=== PATIENT | male | born 1960 | race Caucasian/White ===

== ENCOUNTER 2022-02-21 05:10 | Inpatient (IN) | payer BC ==
[~2022-02-21] VITALS: Ht 195.6 cm; Wt 120.1 kg
[2022-02-21] MEDS ORDERED: ELIQ5TAB PO (05:33)
[2022-02-21] MEDS ORDERED: DOFE500C PO (05:33)
[2022-02-21] MEDS ORDERED: METO200T28 PO (05:33)
[2022-02-21] MEDS ORDERED: ONDANSETRON 4MG 2ML VIAL IV ONE (06:30)
[2022-02-21] MEDS ORDERED: NS 1,000 ML IV ONE (06:30)
[2022-02-21] MEDS ORDERED: MORPHINE 4 MG/ML 1ML VIAL/SYRINGE IV ONE (06:30)
[2022-02-21 06:42] LABS: ALBUMIN 3.8 GM/DL (3.2-5.2); ALT/SGPT 47 U/L (12-78); BILIRUBIN,TOTAL 0.6 MG/DL (0.2-1.0); BLOOD UREA NITROGEN 20 MG/DL (7-18); CALCIUM LEVEL 9.8 MG/DL (8.8-10.2); CARBON DIOXIDE LEVEL 26 MEQ/L (21-32); CHLORIDE LEVEL 110 MEQ/L (98-107); CREATININE FOR GFR 1.06 MG/DL (0.70-1.30); GLOMERULAR FILTRATION RATE > 60.0 (>49); GLUCOSE, FASTING 117 MG/DL (70-100); LIPASE 79 U/L (73-393); MAGNESIUM LEVEL 2.2 MG/DL (1.8-2.4); POTASSIUM SERUM 4.1 MEQ/L (3.5-5.1); SODIUM LEVEL 143 MEQ/L (136-145); TOTAL PROTEIN 7.6 GM/DL (6.4-8.2)
[2022-02-21 06:44] LABS: CK-MB VALUE MASS 7.5 NG/ML (<3.6); MB/CK RELATIVE INDEX 2.81 (< OR =4)
[2022-02-21 06:48] LABS: BASO % 0.3 % (0.0-1.0); EOS # 0.2 10^3/uL (0.0-0.5); EOS % 1.6 % (0.0-3.0); HEMATOCRIT 44.9 % (42.0-52.0); HEMOGLOBIN 15.4 g/dl (13.5-17.5); LYMPH # 1.5 10^3/uL (1.5-5.0); LYMPH % 15.8 % (24.0-44.0); MEAN CORPUSCULAR HGB CONC 34.3 g/dl (32.0-36.5); MEAN CORPUSCULAR VOLUME 93.2 fl (80.0-96.0); MONO # 0.7 10^3/uL (0.0-0.8); MONO % 7.4 % (2.0-8.0); NEUTROPHILS # 6.9 10^3/uL (1.5-8.5); NEUTROPHILS % 74.6 % (36.0-66.0); PLATELET COUNT, AUTOMATED 245 10^3/uL (150-450); RED BLOOD COUNT 4.82 10^6/uL (4.30-6.10); WHITE BLOOD COUNT 9.3 10^3/uL (4.0-10.0)
[2022-02-21] MEDS ORDERED: ISOVUE-370 76% 100ML VIAL As Ordered ONE (07:13)
[2022-02-21 07:42] LABS: CK-MB VALUE MASS 6.7 NG/ML (<3.6); MB/CK RELATIVE INDEX 2.72 (< OR =4)
[2022-02-21] MEDS ORDERED: PIPERACILLIN/TAZOBACTAM SOD 3.375 GM in D5W MINI-BAG PLUS 50 ML IV ONE (08:20)
[2022-02-21] MEDS ORDERED: NS 1,000 ML IV SCH (08:20)
[2022-02-21] MEDS ORDERED: HYDROMORPHONE HCL 0.5 MG/ 0.5 ML SYRINGE (J1170 PER 1) IV ONE (08:25)
[2022-02-21] MEDS ORDERED: BUPIVACAINE HCL 0.5% 30ML VIAL As Ordered ONE (09:43)
[2022-02-21] MEDS ORDERED: BUPIVACAINE LIPOSOME/PF 1.3% 20ML VIAL (13.3MG/ML)(EXPAREL) As Ordered ONE (09:43)
[2022-02-21] MEDS ORDERED: ROCURONIUM BROMIDE 50 MG/5 ML VIAL As Ordered ONE ×2 (10:15→10:21)
[2022-02-21] MEDS ORDERED: ACETAMINOPHEN 1000MG 100ML IV BTL (OFIRMEV) (J0131 PER 10MG) As Ordered ONE (10:15)
[2022-02-21] MEDS ORDERED: MIDAZOLAM INJ 2MG/2ML VIAL (J2250 PER 1MG) As Ordered ONE (10:15)
[2022-02-21] MEDS ORDERED: LIDOCAINE 2% 100MG/5ML SDV (FOR ANES.) As Ordered ONE (10:15)
[2022-02-21] MEDS ORDERED: dexameTHASONE 4 MG/ML 1ML VIAL (J1100 PER 1MG) As Ordered ONE (10:15)
[2022-02-21] MEDS ORDERED: HYDROmorphone HCL 2MG/ML 1ML VIAL As Ordered ONE (10:15)
[2022-02-21] MEDS ORDERED: fentaNYL 100 MCG/2 ML INJECTION As Ordered ONE (10:15)
[2022-02-21] MEDS ORDERED: propofoL 200 MG/20 ML VIAL As Ordered ONE (10:15)
[2022-02-21] MEDS ORDERED: PHENYLephrine 500MCG 5ML (100MCG/ML) SYRINGE As Ordered ONE (10:15)
[2022-02-21] MEDS ORDERED: ONDANSETRON 4MG 2ML VIAL As Ordered ONE (10:15)
[2022-02-21] MEDS ORDERED: SUCCINYLCHOLINE 100 MG/5 ML SYRINGE (J0330) As Ordered ONE (10:15)
[2022-02-21] MEDS ORDERED: SUGAMMADEX SODIUM 500 MG/5 ML VIAL (BRIDION) As Ordered ONE (10:21)
[2022-02-21] MEDS ORDERED: oxyCODONE 5MG TAB PO PRN (11:50)
[2022-02-21] MEDS ORDERED: LR 1,000 ML IV SCH (11:50)
[2022-02-21] MEDS ORDERED: fentaNYL 100 MCG/2 ML INJECTION IV PRN (11:50)
[2022-02-21] MEDS ORDERED: MORPHINE 2 MG/ML 1ML VIAL IV PRN (11:50)
[2022-02-21] MEDS ORDERED: ONDANSETRON 4MG 2ML VIAL IV PRN ×2 (11:50→12:20)
[2022-02-21] MEDS ORDERED: PERCOCET 5MG/325MG TAB PO PRN ×2 (12:20)
[2022-02-21] MEDS ORDERED: MORPHINE 4 MG/ML 1ML VIAL/SYRINGE IV PRN (12:20)
[2022-02-21 13:16] VITALS: BP 124/77
[2022-02-21] MEDS ORDERED: TOPR25TA PO (14:09)
[2022-02-21] MEDS ORDERED: HOME MED LIST COMPLETE! XX SCH (14:10)
[2022-02-21] MEDS: KETOROLAC 30 MG/ML 1ML VIAL IV SCH ×2 (14:45→20:47)
[2022-02-21] MEDS: SENOKOT S TAB PO SCH ×2 (14:45→20:47)
[2022-02-21] MEDS: PIPERACILLIN/TAZOBACTAM SOD 3.375 GM in D5W MINI-BAG PLUS 50 ML IV SCH ×2 (14:46→20:47)
[2022-02-21] MEDS: KCL 20MEQ IN D5/0.45NS 1000ML 1,000 ML IV SCH (14:47)
[2022-02-21] MEDS: PANTOPRAZOLE 40MG VIAL IV SCH (14:49)
[2022-02-21 16:09] VITALS: BP 119/73
[2022-02-21 20:00] VITALS: BP 104/62
[2022-02-22] VITALS: BP 116/67
[2022-02-22] MEDS: KCL 20MEQ IN D5/0.45NS 1000ML 1,000 ML IV SCH ×4 (01:11→20:31)
[2022-02-22] MEDS: KETOROLAC 30 MG/ML 1ML VIAL IV SCH ×4 (01:12→18:00)
[2022-02-22 04:00] VITALS: BP 108/70
[2022-02-22] MEDS: PIPERACILLIN/TAZOBACTAM SOD 3.375 GM in D5W MINI-BAG PLUS 50 ML IV SCH ×4 (04:39→20:32)
[2022-02-22 05:56] LABS: BASO % 0.3 % (0.0-1.0); EOS # 0.1 10^3/uL (0.0-0.5); EOS % 0.7 % (0.0-3.0); HEMATOCRIT 39.2 % (42.0-52.0); LYMPH # 0.9 10^3/uL (1.5-5.0); LYMPH % 12.8 % (24.0-44.0); MEAN CORPUSCULAR HEMOGLOBIN 32.1 pg (27.0-33.0); MEAN CORPUSCULAR HGB CONC 33.2 g/dl (32.0-36.5); MEAN CORPUSCULAR VOLUME 96.8 fl (80.0-96.0); MONO # 0.6 10^3/uL (0.0-0.8); MONO % 7.9 % (2.0-8.0); NEUTROPHILS # 5.5 10^3/uL (1.5-8.5); PLATELET COUNT, AUTOMATED 182 10^3/uL (150-450); RED BLOOD COUNT 4.05 10^6/uL (4.30-6.10); WHITE BLOOD COUNT 7.1 10^3/uL (4.0-10.0)
[2022-02-22 06:16] LABS: ALBUMIN 2.7 GM/DL (3.2-5.2); ALT/SGPT 30 U/L (12-78); BILIRUBIN,TOTAL 0.9 MG/DL (0.2-1.0); BLOOD UREA NITROGEN 16 MG/DL (7-18); CALCIUM LEVEL 7.9 MG/DL (8.8-10.2); CARBON DIOXIDE LEVEL 23 MEQ/L (21-32); CHLORIDE LEVEL 112 MEQ/L (98-107); CREATININE FOR GFR 0.91 MG/DL (0.70-1.30); GLOMERULAR FILTRATION RATE > 60.0 (>49); GLUCOSE, FASTING 120 MG/DL (70-100); POTASSIUM SERUM 3.9 MEQ/L (3.5-5.1); SODIUM LEVEL 142 MEQ/L (136-145); TOTAL PROTEIN 6.2 GM/DL (6.4-8.2)
[2022-02-22 08:00] VITALS: BP 121/72
[2022-02-22] MEDS: ALVIMOPAN 12 MG CAPSULE (ENTEREG) PO SCH ×2 (09:19→20:32)
[2022-02-22] MEDS: SENOKOT S TAB PO SCH ×2 (09:19→20:32)
[2022-02-22] MEDS: ENOXAPARIN 40MG/0.4ML SYRINGE (J1650 PER 10MG) SC SCH (09:20)
[2022-02-22] MEDS: METOPROLOL SUCC *XL* 25MG TAB (TopROL *XL*) PO SCH (09:20)
[2022-02-22] MEDS: PANTOPRAZOLE 40MG VIAL IV SCH (09:20)
[2022-02-22 12:15] VITALS: BP 113/68
[2022-02-22 16:00] VITALS: BP 139/88
[2022-02-22] MEDS: DOFETILIDE 500 MCG PO SCH (20:32)
[2022-02-22 20:33] VITALS: BP 119/74
[2022-02-23] VITALS: BP 114/70
[2022-02-23] MEDS: KETOROLAC 30 MG/ML 1ML VIAL IV SCH ×4 (00:34→18:09)
[2022-02-23 04:00] VITALS: BP 124/70
[2022-02-23] MEDS: PIPERACILLIN/TAZOBACTAM SOD 3.375 GM in D5W MINI-BAG PLUS 50 ML IV SCH ×4 (04:21→20:32)
[2022-02-23 05:22] LABS: BASO % 0.4 % (0.0-1.0); EOS # 0.2 10^3/uL (0.0-0.5); EOS % 2.8 % (0.0-3.0); HEMATOCRIT 36.4 % (42.0-52.0); HEMOGLOBIN 11.9 g/dl (13.5-17.5); LYMPH # 1.2 10^3/uL (1.5-5.0); LYMPH % 21.1 % (24.0-44.0); MEAN CORPUSCULAR HGB CONC 32.7 g/dl (32.0-36.5); MEAN CORPUSCULAR VOLUME 97.8 fl (80.0-96.0); MONO # 0.6 10^3/uL (0.0-0.8); MONO % 9.6 % (2.0-8.0); NEUTROPHILS # 3.8 10^3/uL (1.5-8.5); NEUTROPHILS % 65.9 % (36.0-66.0); PLATELET COUNT, AUTOMATED 175 10^3/uL (150-450); RED BLOOD COUNT 3.72 10^6/uL (4.30-6.10); WHITE BLOOD COUNT 5.7 10^3/uL (4.0-10.0)
[2022-02-23] MEDS: KCL 20MEQ IN D5/0.45NS 1000ML 1,000 ML IV SCH (06:16)
[2022-02-23 07:30] VITALS: BP 128/79
[2022-02-23] MEDS: SENOKOT S TAB PO SCH ×2 (09:32→20:32)
[2022-02-23] MEDS: METOPROLOL SUCC *XL* 25MG TAB (TopROL *XL*) PO SCH (09:32)
[2022-02-23] MEDS: PANTOPRAZOLE 40MG VIAL IV SCH (09:32)
[2022-02-23] MEDS: ALVIMOPAN 12 MG CAPSULE (ENTEREG) PO SCH ×2 (09:33→20:32)
[2022-02-23] MEDS: DOFETILIDE 500 MCG PO SCH ×2 (09:33→20:32)
[2022-02-23] MEDS: ENOXAPARIN 40MG/0.4ML SYRINGE (J1650 PER 10MG) SC SCH (09:33)
[2022-02-23 17:45] VITALS: BP 135/86
[2022-02-23 21:44] VITALS: BP 136/87
[2022-02-24] MEDS: KETOROLAC 30 MG/ML 1ML VIAL IV SCH ×2 (01:22→06:21)
[2022-02-24] MEDS: PIPERACILLIN/TAZOBACTAM SOD 3.375 GM in D5W MINI-BAG PLUS 50 ML IV SCH ×2 (03:06→09:37)
[2022-02-24 05:03] VITALS: BP 126/84
[2022-02-24 06:38] LABS: BASO % 0.8 % (0.0-1.0); EOS # 0.3 10^3/uL (0.0-0.5); EOS % 6.2 % (0.0-3.0); HEMATOCRIT 37.3 % (42.0-52.0); HEMOGLOBIN 12.7 g/dl (13.5-17.5); LYMPH # 0.9 10^3/uL (1.5-5.0); LYMPH % 18.7 % (24.0-44.0); MEAN CORPUSCULAR HEMOGLOBIN 32.6 pg (27.0-33.0); MEAN CORPUSCULAR VOLUME 95.6 fl (80.0-96.0); MONO # 0.5 10^3/uL (0.0-0.8); MONO % 9.6 % (2.0-8.0); NEUTROPHILS # 3.2 10^3/uL (1.5-8.5); NEUTROPHILS % 64.3 % (36.0-66.0); PLATELET COUNT, AUTOMATED 203 10^3/uL (150-450)
[2022-02-24] MEDS: SENOKOT S TAB PO SCH (09:35)
[2022-02-24] MEDS: ALVIMOPAN 12 MG CAPSULE (ENTEREG) PO SCH (09:36)
[2022-02-24 09:37] VITALS: BP 126/84
[2022-02-24] MEDS: PANTOPRAZOLE 40MG VIAL IV SCH (09:37)
[2022-02-24] MEDS: METOPROLOL SUCC *XL* 25MG TAB (TopROL *XL*) PO SCH (09:37)
[2022-02-24] MEDS: ENOXAPARIN 40MG/0.4ML SYRINGE (J1650 PER 10MG) SC SCH (09:37)
[2022-02-24] MEDS: DOFETILIDE 500 MCG PO SCH (09:38)
[2022-02-24] MEDS ORDERED: AUGM500T34 PO (11:10)
== END 2022-02-24 13:53 | disposition home or self-care (01) | DRG 223 ==
LOC: M ED 05:10 → M ED INP 09:04 → M PCU 13:10 → M MSPAV 02-23 17:07
PROVIDERS: ADMIT Surgery; ATTEND Surgery
PROC: 0DTJ0ZZ Resection of Appendix, Open Approach (ICD-10-PCS; 2022-02-21)
PROC: 0DSH0ZZ Reposition Cecum, Open Approach (ICD-10-PCS; principal; 2022-02-21 08:35)
DX: Q43.3 Congenital malformations of intestinal fixation (principal); I48.91 Unspecified atrial fibrillation; K57.10 Diverticulosis of small intestine without perforation or abscess without bleeding; K63.89 Other specified diseases of intestine; Z95.0 Presence of cardiac pacemaker; Z79.01 Long term (current) use of anticoagulants; Z88.8 Allergy status to other drugs, medicaments and biological substances; K56.609 Unspecified intestinal obstruction, unspecified as to partial versus complete obstruction; Z79.899 Other long term (current) drug therapy

== ENCOUNTER → 2024-01-08 | Outpatient (CLI) | payer BC ==
[~2024-01-08] MED LIST: AUGM500T34 PO; DOFE500C PO; ELIQ5TAB PO; ISOVUE-370 76% 100ML VIAL ONE; METO200T15 PO; TOPR25TA PO
== END ==
LOC: M PLAIMG 13:17
PROVIDERS: ATTEND Physician Assistant
DX: I71.40 Abdominal aortic aneurysm, without rupture, unspecified (principal)

== ENCOUNTER → 2024-05-21 | Outpatient (CLI) | payer BC ==
[~2024-05-21] MED LIST changes: +GASTROGRAFIN SOLUTION 30ML As Ordered ONE; -ISOVUE-370 76% 100ML VIAL ONE
== END ==
LOC: M RAD 10:47
PROVIDERS: ATTEND Surgery
DX: K40.00 Bilateral inguinal hernia, with obstruction, without gangrene, not specified as recurrent (principal); K43.2 Incisional hernia without obstruction or gangrene
CPT/HCPCS: 74176; Q9963